=== PATIENT | male | born 1955 | race Caucasian/White ===

== ENCOUNTER 2023-07-25 11:28 | Emergency (ER) | payer MEDICARE ==
[~2023-07-25] VITALS: Ht 175 cm; Wt 91.0 kg
[2023-07-25 11:56] LABS: BASOPHILS # (AUTO) 0.1 10^3/uL (0.0-0.1); BASOPHILS % (AUTO) 1 % (0-10); EOSINOPHILS # (AUTO) 0.1 10^3/uL (0.0-0.3); EOSINOPHILS % (AUTO) 2 % (0-10); HEMATOCRIT 47 % (40-54); HEMOGLOBIN 15.5 g/dL (13.3-17.7); LYMPHOCYTES # (AUTO) 0.7 10^3/uL (1.0-4.0); LYMPHOCYTES % (AUTO) 13 % (12-44); MEAN CORPUSCULAR HEMOGLOBIN 32 pg (25-34); MEAN CORPUSCULAR HGB CONC 33 g/dL (32-36); MEAN CORPUSCULAR VOLUME 98 fL (80-99); MEAN PLATELET VOLUME 10.2 fL (9.0-12.2); MONOCYTES # (AUTO) 0.4 10^3/uL (0.0-1.0); MONOCYTES % (AUTO) 7 % (0-12); NEUTROPHILS # (AUTO) 4.3 10^3/uL (1.8-7.8); NEUTROPHILS % (AUTO) 77 % (42-75); PLATELET COUNT 161 10^3/uL (130-400); WHITE BLOOD COUNT 5.6 10^3/uL (4.3-11.0)
--- NOTE | 2023-07-25 11:59 | ED General ---
General Chief Complaint: Respiratory Problems Stated Complaint: SOB; NUMBNESS/TINGLING Nursing Triage Note: PT HAS A HISTORY OF BLOOD CLOTS. HE REPORTS LAST NIGHT BOTH ARMS WERE TINGLING AND HE FELT A TINGLING IN HIS CHEST. HE HAS HAD INCREASED SOB LATELY WELL. Source of Information: Patient, Family History of Present Illness Date Seen by Provider: Jul 25, 2023 Time Seen by Provider: 11:36 Initial Comments 68-year-old male presenting with complaints of tingling in his arms and chest last night. He also felt like a bit more short of breath. He states that he does take Eliquis for history of blood clots and also known coronary artery disease with stents however he is not consistent with taking it and forgets it frequently. He denies having any symptoms currently on arrival to the ED. His daughter did do a home COVID swab that was negative this morning. They were concerned that he might have another blood clot in his lungs so they brought him in to be evaluated. He also has a history of coronary artery disease and myocardial infarction so they were concerned about that as well. Again on arrival to the ED he denies any current complaints. He denies having any swelling or redness or pain in his calves or arms. Severity: Mild Associated Systoms: No Chest Pain, No Cough, No Diaphoresis, No Fever/Chills, No Headaches, No Loss of Appetite, No Malaise, No Nausea/Vomiting, No Rash, No Seizure, No Syncope, No Weakness Allergies and Home Medications Allergies Coded Allergies: No Known Drug Allergies (Unverified , 07/25/23) Patient Home Medication List Home Medication List Reviewed: Yes Review of Systems Review of Systems Constitutional: No chills, No fever EENTM: no symptoms reported Respiratory: see HPI Cardiovascular: No chest pain, No edema, No palpitations Gastrointestinal: no symptoms reported Genitourinary: no symptoms reported Musculoskeletal: No muscle pain Skin: No change in color Psychiatric/Neurological: See HPI Past Zdqwhen-Wcdgwp-Cdxbkq Hx Patient Social History Tobacco Use?: No Use of E-Cig and/or Vaping dev: No Substance use?: No Alcohol Use?: No Pt feels they are or have been: No Immunizations Up To Date Influenza Vaccine Up-to-Date: No; Not Current First/Initial COVID19 Vaccinat: y Second COVID19 Vaccination Chon: y Third COVID19 Vaccination Date: y Past Medical History Surgery/Hospitalization HX: CARDIAC STENTS, THROMBOSIS, pulmonary emboli Surgeries: Yes Coronary Stent Physical Exam Vital Signs Vital Signs - First Documented 07/25/23 11:36 Temp 35.7 Pulse 67 Resp 16 B/P (MAP) 168/100 (122) Pulse Ox 98 O2 Delivery Room Air Capillary Refill : Less Than 3 Seconds Height, Weight, BMI Height: '" Weight: lbs. oz. kg; 29.00 BMI Method: General Appearance: No Apparent Distress, WD/WN HEENT: Pharynx Normal Neck: Full Range of Motion, Normal Inspection, Non Tender, Supple Respiratory: Chest Non Tender, Lungs Clear, Normal Breath Sounds, No Accessory Muscle Use, No Respiratory Distress Cardiovascular: Regular Rate, Rhythm, Normal Peripheral Pulses Gastrointestinal: Normal Bowel Sounds, No Pulsatile Mass, Non Tender, Soft Extremity: Normal Capillary Refill, Normal Inspection, Normal Range of Motion, Non Tender, No Calf Tenderness, No Pedal Edema Neurologic/Psychiatric: Alert, Oriented x3, cell attendant helper II-XII Norm as Tested Skin: Warm/Dry; No Erythema Progress/Results/Core Measures Suspected Sepsis SIRS Temperature: Pulse: 67 Respiratory Rate: 16 Laboratory Tests 07/25/23 11:38: White Blood Count 5.6 Blood Pressure 168 /100 Mean: 122 Laboratory Tests 07/25/23 11:38: Creatinine 1.32H, INR Comment 1.0, Platelet Count 161, Total Bilirubin 0.9 Results/Orders Lab Results Laboratory Tests Test 07/25/23 11:38 Range/Units White Blood Count 5.6 4.3-11.0 10^3/uL Red Blood Count 4.79 4.30-5.52 10^6/uL Hemoglobin 15.5 13.3-17.7 g/dL Hematocrit 47 40-54 % Mean Corpuscular Volume 98 80-99 fL Mean Corpuscular Hemoglobin 32 25-34 pg Mean Corpuscular Hemoglobin Concent 33 32-36 g/dL Red Cell Distribution Width 12.7 10.0-14.5 % Platelet Count 161 130-400 10^3/uL Mean Platelet Volume 10.2 9.0-12.2 fL Immature Granulocyte % (Auto) 0 % Neutrophils (%) (Auto) 77 H 42-75 % Lymphocytes (%) (Auto) 13 12-44 % Monocytes (%) (Auto) 7 0-12 % Eosinophils (%) (Auto) 2 0-10 % Basophils (%) (Auto) 1 0-10 % Neutrophils # (Auto) 4.3 1.8-7.8 10^3/uL Lymphocytes # (Auto) 0.7 L 1.0-4.0 10^3/uL Monocytes # (Auto) 0.4 0.0-1.0 10^3/uL Eosinophils # (Auto) 0.1 0.0-0.3 10^3/uL Basophils # (Auto) 0.1 0.0-0.1 10^3/uL Immature Granulocyte # (Auto) 0.0 0.0-0.1 10^3/uL Prothrombin Time 13.9 12.2-14.7 SEC INR Comment 1.0 0.8-1.4 Activated Partial Thromboplast Time 28 24-35 SEC Sodium Level 136 135-145 MMOL/L Potassium Level 5.0 3.6-5.0 MMOL/L Chloride Level 103 98-107 MMOL/L Carbon Dioxide Level 23 21-32 MMOL/L Anion Gap 10 5-14 MMOL/L Blood Urea Nitrogen 21 H 7-18 MG/DL Creatinine 1.32 H 0.60-1.30 MG/DL Estimat Glomerular Filtration Rate 59 BUN/Creatinine Ratio 16 Glucose Level 148 H 70-105 MG/DL Calcium Level 9.7 8.5-10.1 MG/DL Corrected Calcium 9.5 8.5-10.1 MG/DL Magnesium Level 1.8 1.6-2.4 MG/DL Total Bilirubin 0.9 0.1-1.0 MG/DL Aspartate Amino Transf (AST/SGOT) 22 5-34 U/L Alkaline Phosphatase 68 40-136 U/L Troponin I < 0.30 <0.30 NG/ML Pro-B-Type Natriuretic Peptide 260.5 H <125.0 PG/ML Total Protein 7.3 6.4-8.2 GM/DL Albumin 4.3 3.2-4.5 GM/DL My Orders Orders - EMILY HWANG MD Cbc And Automated Diff (07/25/23 11:51) Magnesium (07/25/23 11:51) Ekg Tracing (07/25/23 11:51) Comprehensive Metabolic Panel (07/25/23 11:51) Protime With Inr (07/25/23 11:51) Partial Thromboplastin Time (07/25/23 11:51) O2 (07/25/23 11:51) Monitor-Rhythm Ecg Trace Only (07/25/23 11:51) Ed Iv/Invasive Line Start (07/25/23 11:51) Troponin I Fs (07/25/23 11:51) Probnp Fs (07/25/23 11:51) Ct Angio Chest W (07/25/23 11:51) Iohexol Injection (Omnipaque 350 Mg/Ml 1 (07/25/23 12:00) Di Iv Start (Assessment) .IV start (07/25/23 11:58) Received Contrast (Hold Metformin- Contr (07/25/23 12:00) Ns (Ivpb) 100 Ml (Sodium Chloride 0.9% 1 (07/25/23 12:00) Vital Signs/I&O 07/25/23 11:36 Temp 35.7 Pulse 67 Resp 16 B/P (MAP) 168/100 (122) Pulse Ox 98 O2 Delivery Room Air Capillary Refill : Less Than 3 Seconds Blood Pressure Mean: 122 Progress Note #1: Progress Note Differential diagnosis includes electrolyte imbalance, pulmonary embolism, coronary artery disease, acute coronary syndrome, myocardial infarction, heart failure, kidney failure, pneumonia. Placed on cardiac auto fleet manager and obtain electrocardiogram. My initial interpretation of his cardiac telemetry shows sinus bradycardia with a heart rate in the 50s. His electrocardiogram also shows sinus bradycardia without ST elevation. There is no prior tracing for comparison. Establish peripheral IV access and send labs for complete blood count, comprehensive metabolic profile, magnesium, troponin, proBNP, coagulation factors. CT angiography of the chest to evaluate for possible PE. As he is not having any discomfort or complaints currently on arrival to the ED will continue to monitor and obtain these tests. His oxygen saturation is 97 to 99% on room air. His blood pressure is 131/85. Progress Note #2: Time: 12:34 Progress Note No acute significant abnormality on his complete blood count or his coagulation factors. On his comprehensive metabolic profile he had mild elevation of his creatinine to 1.32. His troponin was negative at less than 0.3. proBNP was elevated to 260.5. CT angiography of the chest was read out as no PE and no acute abnormality in the chest. Reassured patient and stressed importance of consistently taking his Eliquis. Encouraged follow-up with primary care and cardiology as needed ECG Initial ECG Impression Date: Jul 25, 2023 Initial ECG Impression Time: 11:45 Initial ECG Rate: 55 Initial ECG Rhythm: S.Giuseppe Initial ECG Comparisson: No Previous ECG Available Comment On my initial interpretation and review the electrocardiogram shows sinus bradycardia with a heart rate of 55 bpm. NC interval [address] elevation. QT interval 378 ms with a QTc interval 367 ms. There is no prior tracing for comparison. Diagnostic Imaging Diagonstic Imaging: CT Plain Films/CT/US/NM/MRI: chest Comments NAME: GELA JASON [facility] REC#: [id number] PT STATUS: REG ER : 1955 PHYSICIAN: EMILY HWANG MD ADMIT DATE: 07/25/23/ER FS Draft Date of Exam:07/25/23 CT ANGIO CHEST W PROCEDURE: CT angiography of the chest with contrast. TECHNIQUE: Multiple contiguous axial images were obtained through the chest after uneventful bolus administration of intravenous contrast. 3D reconstructed CTA MIP acquisitions were also performed. Auto Exposure Controls were utilized during the CT exam to meet ALARA standards for radiation dose reduction. INDICATION: Extremity numbness, tingling, chest pain, history of PE. FINDINGS: There are no pulmonary arterial filling defects. There is no PE. The thoracic aorta patent and nonaneurysmal and nonacute. No pleural or pericardial effusion. No thoracic adenopathy. No lung mass. No edema or pneumonia. No acute chest wall pathology. The visible upper abdomen nonacute. IMPRESSION: Negative for PE or other acute chest abnormalities. Dictated on workstation # [id number] Dict: 07/25/23 1223 Trans: 07/25/23 1227 CV [id number] Interpreted by: FALLON MANZANARES Electronically signed by: Reviewed: Reviewed by Me Departure Impression Primary Impression: Numbness and tingling of both upper extremities Additional Impression: History of pulmonary embolism Disposition: 01 HOME, SELF-CARE Condition: Stable Departure-Patient Inst. Decision time for Depature: 12:38 Referrals: GALEN MAYNARD MD (PCP) Primary Care Physician Patient Instructions: Taking medicines for blood clots Add. Discharge Instructions: Your blood work, electrocardiogram, CAT scan of your chest all looked okay. There was no evidence of an acute heart attack or signs of any recurrent pulmonary embolism or blood clot. Be more consistent with taking your Eliquis and prescribed medicines so that you do not miss doses. Follow-up with primary care and specialists as needed for continued concerns. All discharge instructions reviewed with patient and/or family. Voiced understanding. EMILY HWANG MD Jul 25, 2023 11:59
[2023-07-25] MEDS ORDERED: NS 100 ML (IVPB) BAG IV ONE (12:00)
[2023-07-25] MEDS ORDERED: IOHEXOL 350 MG/ML 100 ML (OMNIPAQUE 350) VIAL IV ONE (12:00)
[2023-07-25] MEDS ORDERED: HOLD METFORMIN - RECEIVED CONTRAST 20 ML VIAL IV SCH (12:00)
[2023-07-25 12:06] LABS: PROTHROMBIN TIME PATIENT 13.9 SEC (12.2-14.7)
[2023-07-25 12:10] LABS: BILIRUBIN,TOTAL 0.9 MG/DL (0.1-1.0); CALCIUM 9.7 MG/DL (8.5-10.1); CARBON DIOXIDE 23 MMOL/L (21-32); CHLORIDE 103 MMOL/L (98-107); MAGNESIUM 1.8 MG/DL (1.6-2.4); SODIUM 136 MMOL/L (135-145); TOTAL PROTEIN 7.3 GM/DL (6.4-8.2)
[2023-07-25 12:13] LABS: ALKALINE PHOSPHATASE 68 U/L (40-136); BUN/CREATININE RATIO 16; CREATININE SERUM 1.32 MG/DL (0.60-1.30); GFR ESTIMATED 59; GLUCOSE 148 MG/DL (70-105)
[2023-07-25 12:14] LABS: ALBUMIN 4.3 GM/DL (3.2-4.5)
--- NOTE | 2023-07-25 12:27 | Diagnostic Imaging Report ---
PROCEDURE: CT angiography of the chest with contrast. TECHNIQUE: Multiple contiguous axial images were obtained through the chest after uneventful bolus administration of intravenous contrast. 3D reconstructed CTA MIP acquisitions were also performed. Auto Exposure Controls were utilized during the CT exam to meet ALARA standards for radiation dose reduction. INDICATION: Extremity numbness, tingling, chest pain, history of PE. FINDINGS: There are no pulmonary arterial filling defects. There is no PE. The thoracic aorta patent and nonaneurysmal and nonacute. No pleural or pericardial effusion. No thoracic adenopathy. No lung mass. No edema or pneumonia. No acute chest wall pathology. The visible upper abdomen nonacute. IMPRESSION: Negative for PE or other acute chest abnormalities. Dictated by: Dictated on workstation # [id number]
[2023-07-25 12:38] LABS: ALANINE AMINOTRANSFERASE 26 U/L (0-55)
[2023-07-25 12:46] VITALS: BP 110/73
== END 2023-07-25 12:47 | disposition home or self-care (01) ==
LOC: ER FS 11:34
DX: R20.0 Anesthesia of skin (principal); R20.2 Paresthesia of skin; I25.10 Atherosclerotic heart disease of native coronary artery without angina pectoris; Z86.711 Personal history of pulmonary embolism; Z79.01 Long term (current) use of anticoagulants
CPT/HCPCS: 36415; 71275; 80053; 83735; 83880; 84484; 85025; 85610; 85730; 93005; Q9967